=== PATIENT | male | born 1970 | race Caucasian/White ===

== ENCOUNTER 2017-02-21 17:34 | Emergency (ER) | payer OTHER ==
[~2017-02-21] VITALS: Ht 170.2 cm; Wt 142.0 kg
[~2017-02-21 17:34] MED LIST: BACTRIM,SEPT1 TABLET PO; LEVAQUIN250 MG PO; LEVAQUIN750 MG PO; LODINE400 MG PO; METHADONE5 MG PO; NAPROSYN500 MG PO; NICOTINE PATCH1 EACH TD; OPANA ER20 MG PO; OXYCODONE HCL15 MG PO; OXYCODONE HCL30 MG PO; OXYMORPHONE HCL30 MG PO; PERCOCET 5/31 TABLET PO; ROBITUSSIN AC,T10 ML PO; SILVADENE20 GM TP; ULTRAM50 MG PO; ZOFRAN4 MG PO
[2017-02-21 17:59] VITALS: BP 113/66
== END 2017-02-21 18:30 | disposition home or self-care (01) ==
LOC: EME 17:34
DX: H92.02 Otalgia, left ear (principal)
CPT/HCPCS: 99281; 99284

== ENCOUNTER 2017-05-19 13:26 | Inpatient (IN) | payer OTHER ==
[~2017-05-19] VITALS: Ht 172.7 cm; Wt 89.0 kg
[2017-05-19 14:55] LABS: HEMATOCRIT 46.7 % (38.0-50.0); MCH 26.9 PG (29.0-34.0); MCHC 31.9 G/DL (30.0-36.0); MCV 84.4 FL (86-99); MEAN PLAT.VOLUME 10.5 uM^3 (9.0-12.4); PLATELET COUNT 254 K/uL (156-360); RBC DIS.WIDTH-CV 13.2 % (11.8-14.6); RBC DIS.WIDTH-SD 41.2 % (39-53); RED BLOOD COUNT 5.53 M/uL (4.00-5.50); WHITE BLOOD COUNT 24.9 K/uL (4.1-10.2)
[2017-05-19 15:56] LABS: CHLORIDE 100 mEq/L (99-109); POTASSIUM 3.6 mEq/L (3.7-5.4); SODIUM 134 mEq/L (136-147)
[2017-05-19 15:57] LABS: GLUCOSE 118 mg/dL (70-99)
[2017-05-19 15:59] LABS: ANION GAP 7 MEQ/L (2-14)
[2017-05-19 16:01] LABS: GFR ESTIMATE (CALCULATED) > 59 mL/min/
[2017-05-19 16:02] LABS: UREA NITROGEN (BUN) 19 mg/dL (9-23)
[2017-05-19 16:05] LABS: TROP-I INTERPRETATION NEGATIVE; TROPONIN-I < 0.01 ng/mL (0.0-0.30)
[2017-05-19 21:20] VITALS: BP 88/50
[2017-05-20 06:02] LABS: EOSINOPHIL (%) 0.1 % (0-5); HEMATOCRIT 40.1 % (38.0-50.0); IMMATURE GRANULOCYTE (%) 0.5 % (0.0-0.7); IMMATURE GRANULOCYTE COUNT 0.1 K/uL; INSTRUMENT ABS NEUTROPHIL CT 15.1 K/uL; LYMPHOCYTE COUNT 0.9 K/uL (1.0-2.8); MCH 28.1 PG (29.0-34.0); MCHC 32.9 G/DL (30.0-36.0); MCV 85.3 FL (86-99); MEAN PLAT.VOLUME 10.8 uM^3 (9.0-12.4); MONOCYTE COUNT 0.7 K/uL (0-0.8); NEUTROPHIL (%) 90.1 % (45-76); NEUTROPHIL COUNT 15.1 K/uL (1.8-6.4); PLATELET COUNT 185 K/uL (156-360); RBC DIS.WIDTH-CV 13.3 % (11.8-14.6); RBC DIS.WIDTH-SD 41.6 % (39-53); WHITE BLOOD COUNT 16.8 K/uL (4.1-10.2)
[2017-05-20 07:13] LABS: ANION GAP 9 MEQ/L (2-14); CHLORIDE 109 MEQ/L (99-109); GFR ESTIMATE (CALCULATED) > 59 mL/min/; GLUCOSE 91 mg/dL (70-99); POTASSIUM 3.5 MEQ/L (3.7-5.4); SAMPLE HEMOLYSIS CHECK 0; SAMPLE ICTERIC CHECK 0; SAMPLE LIPEMIA CHECK 0; UREA NITROGEN (BUN) 16 mg/dL (9-23)
[2017-05-20 07:14] LABS: SODIUM 144 MEQ/L (136-147)
[2017-05-20 08:01] VITALS: BP 125/77
[2017-05-20 09:17] LABS: INTERNAL CONTROL VALID? YES
[2017-05-20 12:10] VITALS: BP 111/59
[2017-05-20 13:15] LABS: TROP-I INTERPRETATION NEGATIVE; TROPONIN-I < 0.01 ng/mL (0.0-0.30)
[2017-05-20 16:14] VITALS: BP 99/51
[2017-05-20 18:48] LABS: TROP-I INTERPRETATION NEGATIVE; TROPONIN-I < 0.01 ng/mL (0.0-0.30)
[2017-05-20 19:58] VITALS: BP 120/67
[2017-05-20 23:15] VITALS: BP 109/55
[2017-05-21 01:02] LABS: TROP-I INTERPRETATION NEGATIVE; TROPONIN-I < 0.01 ng/mL (0.0-0.30)
[2017-05-21 03:38] VITALS: BP 116/59
[2017-05-21 07:16] VITALS: BP 108/58
[2017-05-21 09:32] LABS: EOSINOPHIL (%) 0.2 % (0-5); HEMATOCRIT 36.9 % (38.0-50.0); IMMATURE GRANULOCYTE (%) 0.3 % (0.0-0.7); INSTRUMENT ABS NEUTROPHIL CT 8.9 K/uL; LYMPHOCYTE COUNT 0.7 K/uL (1.0-2.8); MCHC 32.5 G/DL (30.0-36.0); MEAN PLAT.VOLUME 11.6 uM^3 (9.0-12.4); MONOCYTE (%) 3.2 % (3-12); MONOCYTE COUNT 0.3 K/uL (0-0.8); NEUTROPHIL (%) 88.8 % (45-76); NEUTROPHIL COUNT 8.9 K/uL (1.8-6.4); PLATELET COUNT 172 K/uL (156-360); RBC DIS.WIDTH-CV 13.6 % (11.8-14.6); RBC DIS.WIDTH-SD 42.5 % (39-53); RED BLOOD COUNT 4.29 M/uL (4.00-5.50)
[2017-05-21 09:55] LABS: ANION GAP 8 MEQ/L (2-14); CHLORIDE 114 MEQ/L (99-109); POTASSIUM 3.8 MEQ/L (3.7-5.4); SAMPLE HEMOLYSIS CHECK 0; SAMPLE ICTERIC CHECK 0; SAMPLE LIPEMIA CHECK 0; SODIUM 145 MEQ/L (136-147)
[2017-05-21 10:01] LABS: GFR ESTIMATE (CALCULATED) > 59 mL/min/; GLUCOSE 94 mg/dL (70-99); UREA NITROGEN (BUN) 15 mg/dL (9-23)
[2017-05-21 11:02] VITALS: BP 102/55
[2017-05-21 15:16] VITALS: BP 123/69
[2017-05-21 23:51] VITALS: BP 125/63
[2017-05-22 03:54] VITALS: BP 110/71
[2017-05-22 06:02] LABS: HEMATOCRIT 35.2 % (38.0-50.0); MCH 26.7 PG (29.0-34.0); MCHC 31.3 G/DL (30.0-36.0); MCV 85.4 FL (86-99); MEAN PLAT.VOLUME 11.1 uM^3 (9.0-12.4); PLATELET COUNT 171 K/uL (156-360); RBC DIS.WIDTH-CV 13.6 % (11.8-14.6); RBC DIS.WIDTH-SD 42.6 % (39-53); RED BLOOD COUNT 4.12 M/uL (4.00-5.50); WHITE BLOOD COUNT 5.7 K/uL (4.1-10.2)
[2017-05-22 07:11] VITALS: BP 122/68
[2017-05-22 11:13] VITALS: BP 126/74
[2017-05-22 15:05] VITALS: BP 131/68
[2017-05-22 20:44] VITALS: BP 139/79
[2017-05-23 00:03] VITALS: BP 108/56
[2017-05-23 03:36] VITALS: BP 113/57
[2017-05-23 08:12] VITALS: BP 133/66
[2017-05-23] MEDS ORDERED: BENZONATATE100 MG PO (09:35)
[2017-05-23] MEDS ORDERED: NICOTINE PATCH1 EAC2 TD (09:35)
[2017-05-23] MEDS ORDERED: AUGMENTIN875 MG PO (09:36)
== END 2017-05-23 12:55 | disposition home or self-care (01) | DRG 194 ==
LOC: EME 13:26 → 5SOUTH 18:09 → EDOF 18:09 → 5SOUTH 20:16 → ENPENDDIS 05-23 → 5SOUTH 05-23 12:55
PROVIDERS: Hospitalist; Internal Medicine; Nurse Practitioner Adult Health
DX: J15.4 Pneumonia due to other streptococci (principal); J91.8 Pleural effusion in other conditions classified elsewhere; F10.21 Alcohol dependence, in remission; F11.21 Opioid dependence, in remission; F17.210 Nicotine dependence, cigarettes, uncomplicated; F41.9 Anxiety disorder, unspecified; F32.9 Major depressive disorder, single episode, unspecified; G89.4 Chronic pain syndrome; Z82.49 Family history of ischemic heart disease and other diseases of the circulatory system; Z87.442 Personal history of urinary calculi; R00.1 Bradycardia, unspecified; R07.89 Other chest pain; R10.9 Unspecified abdominal pain; R19.7 Diarrhea, unspecified; R60.9 Edema, unspecified; R63.4 Abnormal weight loss; Z68.29 Body mass index [BMI] 29.0-29.9, adult; M94.0 Chondrocostal junction syndrome [Tietze]; R91.8 Other nonspecific abnormal finding of lung field
CPT/HCPCS: 71020; 71100; 71275; 74022; 74176; 80048; 80306 90; 81003; 83605; 83690; 84484; 85025; 85027; 87040; 87070; 87205; 87449; 87493; 93005; 93306; 94640; 94799; 99202; 99281; 99285; J0456; J0696; J1885; J2270; J2405; J3010; J7030; J7050

== ENCOUNTER 2017-07-14 23:00 | Emergency (ER) | payer OTHER ==
[~2017-07-14] VITALS: Ht 170.2 cm; Wt 66.8 kg
[~2017-07-14 23:00] MED LIST changes: +AUGMENTIN875 MG PO; +BENZONATATE100 MG PO; +NICOTINE PATCH1 EAC2 TD
[2017-07-14 23:20] VITALS: BP 97/69
== END 2017-07-14 23:21 | disposition home or self-care (01) ==
LOC: EME 23:00
DX: F19.10 Other psychoactive substance abuse, uncomplicated (principal); Z02.89 Encounter for other administrative examinations; F17.200 Nicotine dependence, unspecified, uncomplicated
CPT/HCPCS: 99281; 99283

== ENCOUNTER 2017-07-21 22:53 | Emergency (ER) | payer OTHER ==
[2017-07-21 23:05] LABS: EOSINOPHIL COUNT 0.1 K/uL (0-0.3); HEMATOCRIT 35.9 % (38.0-50.0); IMMATURE GRANULOCYTE (%) 0.4 % (0.0-0.7); INSTRUMENT ABS NEUTROPHIL CT 8.8 K/uL; LYMPHOCYTE COUNT 1.6 K/uL (1.0-2.8); MCH 26.3 PG (29.0-34.0); MCHC 31.8 G/DL (30.0-36.0); MCV 82.9 FL (86-99); MEAN PLAT.VOLUME 9.6 uM^3 (9.0-12.4); MONOCYTE (%) 4.9 % (3-12); MONOCYTE COUNT 0.5 K/uL (0-0.8); NEUTROPHIL (%) 78.9 % (45-76); NEUTROPHIL COUNT 8.8 K/uL (1.8-6.4); PLATELET COUNT 224 K/uL (156-360); RBC DIS.WIDTH-CV 14.7 % (11.8-14.6); RBC DIS.WIDTH-SD 44.6 % (39-53); RED BLOOD COUNT 4.33 M/uL (4.00-5.50); WHITE BLOOD COUNT 11.1 K/uL (4.1-10.2)
[2017-07-21 23:14] LABS: AMYLASE 54 IU/L (1-118); CHLORIDE 106 mEq/L (99-109); POTASSIUM 3.7 mEq/L (3.7-5.4); SODIUM 139 mEq/L (136-147)
[2017-07-21 23:16] LABS: GLUCOSE 127 mg/dL (70-99)
[2017-07-21 23:17] LABS: ANION GAP 7 MEQ/L (2-14)
[2017-07-21 23:19] LABS: SERUM ETHYL ALCOHOL < 10 mg/dL
[2017-07-21 23:20] LABS: GFR ESTIMATE (CALCULATED) > 59 mL/min/
[2017-07-21 23:21] LABS: UREA NITROGEN (BUN) 19 mg/dL (9-23)
[2017-07-21 23:23] LABS: LIPASE 22 U/L (1.0-51.0)
[2017-07-21 23:49] LABS: ADD MIUA? YES; BILIRUBIN NEGATIVE; BLOOD LARGE; COLOR YELLOW ((YELLOW)); GLUCOSE (STRIP) NEGATIVE; KETONES NEGATIVE; LEUKOCYTES NEGATIVE; NITRITE NEGATIVE; PROTEIN (STRIP) 30; SPECIFIC GRAVITY 1.021 (1.000-1.030); UROBILINOGEN 0.2 MG/DL (0.2-1.0)
[2017-07-21 23:53] LABS: BASE EXCESS 1.3 mEq/L (-3 to +3); BICARBONATE 26.6 mEq/L (22-26); CARBOXY HGB 2.3 % (0-5); COMMENTS - BLOOD GASES C+; DEVICE PB840; FI02 100 %; MECHANICAL RATE 16 resp/min; METHEMOGLOBIN 1.2 % (0-1.5); MODE AC; PCO2 44 mm Hg (35-45); PEEP 5 CM/H20; PO2 410 mm Hg (80-100); SITE LB; TIDAL VOLUME 400 ML; TOTAL RESP RATE 16 resp/min; pH 7.39 (7.35-7.45)
[2017-07-21 23:59] LABS: AMPHETAMINE NEGATIVE (500 ng/mL); BARBITURATES NEGATIVE (200 ng/mL); BENZODIAZEPINES NEGATIVE (150 ng/mL); COCAINE PRESUMPTIVE POSITIVE (150 ng/mL); METHADONE PRESUMPTIVE POSITIVE (200 ng/mL); METHAMPHETAMINE NEGATIVE (500 ng/mL); OPIATES (MORPHINE) PRESUMPTIVE POSITIVE (100 ng/mL); OXYCODONE PRESUMPTIVE POSITIVE (100 ng/mL); PHENCYCLIDINE NEGATIVE (25 ng/mL); PROPOXYPHENE NEGATIVE (300 ng/mL); THC CANNABINOIDS NEGATIVE (50 ng/mL); TRICYCLIC ANTIDEPRESSANTS NEGATIVE (300 ng/mL)
[2017-07-22] LABS: ADD MEDTOX COMMENT Y; INTERNAL CONTROLS VALID? YES
[2017-07-22 00:09] LABS: BACTERIA 1+ /HPF; CASTS NONE SEEN /LPF; CRYSTALS NONE SEEN; EPITHELIAL CELLS RARE /HPF; MUCUS NONE SEEN /LPF; RED BLOOD CELLS TNTC /HPF (0-5); UCUL ADDED? YES; WHITE BLOOD CELLS RARE /HPF (0-5)
== END 2017-07-22 01:30 | disposition short-term general hospital (02) ==
LOC: TRA 22:53
PROVIDERS: Emergency Medicine
DX: S06.2X9A Diffuse traumatic brain injury with loss of consciousness of unspecified duration, initial encounter (principal); R40.2432 Glasgow coma scale score 3-8, at arrival to emergency department; W34.00XA Accidental discharge from unspecified firearms or gun, initial encounter; Y92.410 Unspecified street and highway as the place of occurrence of the external cause; F19.10 Other psychoactive substance abuse, uncomplicated; F17.200 Nicotine dependence, unspecified, uncomplicated; Z87.01 Personal history of pneumonia (recurrent); I10 Essential (primary) hypertension
CPT/HCPCS: 36600; 70450; 71010; 72125; 80048; 81003; 82150; 82803; 83690; 84999; 85025; 86850; 86900; 86901; 86920; 87070; 87086; 87205; 94002; 99281; 99284; C1751; C1788; G0480; J0461; J0690; J2250; J3010